=== PATIENT | female | born 1980 | race Caucasian/White ===

== ENCOUNTER 2021-04-23 01:54 | Emergency (ER) | payer OTHER ==
[~2021-04-23] VITALS: Ht 180.3 cm; Wt 81.6 kg
--- NOTE | 2021-04-23 02:08 | NUR ---
Patient sent back to waiting room due to no beds available in the ER at this time.
[2021-04-23] MEDS ORDERED: ALPR2TAB7 PO (02:23)
[2021-04-23] MEDS ORDERED: LISI20TA30 PO (02:23)
[2021-04-23] MEDS ORDERED: ESCI20TA PO (02:23)
[2021-04-23] MEDS ORDERED: BUPR100T5 PO (02:23)
--- NOTE | 2021-04-23 04:15 | NUR ---
Bed avaialable at this time. Patient placed in room 1b. Dr Willoughby into re eval patient.
--- NOTE | 2021-04-23 04:36 | NUR ---
41 y/o female with hx of methamphetamine + heroin abuse presents to ED for recurring abcess in groin. States she has had I&D + abx prescribed/done at [facility] but problem still persists. VSS. Denies CP, SOB, or any other issues needing emergent care.
--- NOTE | 2021-04-23 04:38 | NUR ---
Patient ambulated w/ steady gait to restroom to give urine sample.
[2021-04-23 05:04] LABS: *URINE HCG, QUAL NEGATIVE (NEGATIVE)
[2021-04-23] MEDS ORDERED: SULF1TAB48 PO (06:25)
--- NOTE | 2021-04-23 06:52 | NUR ---
Patient discharged to home in stable condition. Written and verbal after care instructions given. Patient verbalizes understanding of instructions. Stressed follow up or return to ER for worsening s/s.
[2021-04-23 06:53] VITALS: BP 120/66
== END 2021-04-23 06:53 | disposition home or self-care (01) ==
LOC: ER 02:08
DX: Z48.817 Encounter for surgical aftercare following surgery on the skin and subcutaneous tissue (principal); L03.317 Cellulitis of buttock; R59.0 Localized enlarged lymph nodes; Z59.02 Unsheltered homelessness; F17.210 Nicotine dependence, cigarettes, uncomplicated
CPT/HCPCS: 72192; 84703; A4663